=== PATIENT | male | born 1970 | race Caucasian/White ===

== ENCOUNTER 2016-11-19 10:25 | Observation (INO) ==
[2016-11-19] MEDS ORDERED: ZOFRAN IV PRN (11:07)
[2016-11-19] MEDS ORDERED: TYLENOL PO PRN (11:07)
[2016-11-19] MEDS ORDERED: NORCO-7.5 PO PRN (11:13)
[2016-11-19 12:15] LABS: MANUAL DIFF NEEDED? NO
[2016-11-19 12:23] LABS: BASO% 0.6 % (0.0-0.8); EOS# 0.11 X1000 (0.0-0.7); EOS% 1.3 % (0.0-10.0); HEMATOCRIT 53.4 % (42.0-52.0); HEMOGLOBIN 18.1 g/dL (14.0-18.0); IMM GRAN# 0.02 X1000 (0.0-0.04); IMM GRAN% 0.2 % (0.0-0.5); LYMPH# 1.51 X1000 (1.2-3.4); LYMPH% 18.5 % (20.5-51.1); MCH 30.3 PG (27-31); MCHC 33.9 g/dL (33-37); MCV 89.3 FL (81-99); MONO# 0.59 X1000 (0.11-0.59); MONO% 7.2 % (1.7-9.3); MPV 11.3 FL (7.4-10.4); NEUT% 72.2 % (42.2-75.2); PLT 247 X1000 (130-400); RBC 5.98 XMIL (4.7-6.1)
[2016-11-19 12:34] LABS: ALBUMIN 4.9 g/dL (3.5-5.0); CALCIUM 10.3 mg/dL (8.8-10.2); HEMOGLOBIN A1C 7.8 % (4.8-6.0); POTASSIUM 4.4 mmol/L (3.5-5.1); TOTAL BILIRUBIN 0.46 mg/dL (0.20-1.00); TOTAL PROTEIN 7.8 g/dL (6.3-8.3)
[2016-11-19] MEDS: HUMULIN R SUBQ SCH ×3 (12:38→20:33)
[2016-11-19] MEDS ORDERED: VANCOMYCIN IV PER PHARMACY MISC SCH (13:00)
--- NOTE | 2016-11-19 13:39 | HISTORY AND PHYSICAL ---
CHIEF COMPLAINT: Left great toe redness, swelling, pain after truck washer injury. HISTORY OF PRESENT ILLNESS: The patient is a 46-year-old, white male, who suffers from IDDM and fatty liver, who comes in stating he was working on pressure washing an area around his home when he tripped and accidentally left the nozzle on extremely high, and it hit into his left great toe distally skinning the hide off the fdh-ki-etqwui portion of the left great toe area. Skin has been removed by the pressure of the washer. He has had some redness develop and extend back up to the base of the great toe just into the proximal 1st metatarsal area on the left. He had called Dr. Rj Amezcua, a friend and orthopedist, who had placed him on Bactrim DS as of yesterday. He has been fairly active on the toe since then. The injury occurred on 11/14/2016. MEDICATIONS PRIOR TO ADMISSION: 1. Prilosec 40 mg p.o. daily. 2. Victoza 1.8 mg subcutaneous daily. 3. Lantus. He has been able to reduce that from 52 units to 25 units q.a.m. recently with improved diet and with addition of medications. 4. Cozaar 100 mg p.o. daily. 5. Fenofibrate 160 mg p.o. daily. 6. Lipitor 40 mg p.o. at bedtime. 7. Xarelto 20 mg p.o. daily. 8. Glucotrol 10 mg p.o. b.i.d. 9. Synjardy 12.10/1000 p.o. b.i.d. 10. He took [place] x1 or 2 he had at home at 7.5 mg for pain the last couple of days. ALLERGIES: NKDA. PAST MEDICAL HISTORY: 1. Type 2 diabetes mellitus diagnosed in 06/2001. 2. Factor V Leiden deficiency, on chronic anticoagulation. 3. History of kidney stones. 4. Fatty liver. 5. History of obesity, much improved lately with Victoza and Synjardy. PAST SURGICAL HISTORY: 1. Bilateral knee surgery. 2. Left ear surgery due to a cholesteatoma. T-tube there in the past. 3. Vasectomy in 2003. FAMILY HISTORY: Patient is adopted. SOCIAL HISTORY: The patient lives in [place]. He has remarried. He has 2 children. He is a nonsmoker, nondrinker. 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 REVIEW OF SYSTEMS: Notable for weight loss with the new diabetic medications. Down from 182 in 07/2016 to 164. PHYSICAL EXAMINATION: VITAL SIGNS: Blood pressure 122/70, pulse 84, temperature 97.1 degrees. Weight: 164. GENERAL: A well-developed, well-nourished, thin, white male, in no acute distress. SKIN: There is removal of the skin from the xbm-zh-yeelca toe on the left great toe around the nail area. There is redness in the meo-ra-yxqqghho left great toe area extending back into the very distal left first metatarsal area of the foot. No purulence identified. HEENT: PERRL. EOMI. Sclerae anicteric. OP: No redness. Tongue in the midline. NECK: No bruits, TMG, JVD. CARDIOVASCULAR: RRR without murmur. LUNGS: CTA. ABDOMEN: Nontender. No mass or organomegaly. BACK: No CVA tenderness. GENITOURINARY/RECTAL: Deferred. EXTREMITIES: No calf tenderness, cords, or edema. Peripheral pulses 2+ over 4. NEUROLOGIC: CN 2 through 12 intact. NF. ASSESSMENT: 1. washer meat skin decortication, left great toe area, with resulting cellulitis, less likely osteomyelitis. 2. Insulin-requiring diabetes mellitus. 3. Fatty liver. 4. Factor V Leiden deficiency, on chronic Xarelto therapy. 5. History of kidney stones. PLAN: We will admit the patient to the hospital as this is worsening vigorously. We will check blood cultures x2, CBC, CMP, sedimentation rate. Continue his Xarelto and place him on SSI with serial Accu-Cheks. Holding his home diabetic medications. We will gradually resume his home medications. We will start him on IV Zosyn and vancomycin. We will check x-rays left great toe. cc: Fazal Sánchez MD
--- NOTE | 2016-11-19 13:57 | Diag Imaging Result Doc PS360 ---
EXAM: TOE(S)-LEFT HISTORY: cellulitis vs osteomyelitis grat toe TECHNIQUE: Three views COMMENT: There is extensive arterial calcification. There is no evidence of fracture dislocation or erosion or soft tissue calcification. IMPRESSION: No acute bony disease. Electronically signed by Salvatore Saeed 11/19/2016 1:55 PM
[2016-11-19] MEDS: ZOSYN 2.25 GM/NS 2.25 GM/50 ML IVPB IV SCH ×2 (14:50→20:25)
[2016-11-19] MEDS ORDERED: VANCOMYCIN 1.5 GM in NS 250 ML IV ONE (15:00)
[2016-11-19] MEDS ORDERED: BENADRYL IV PRN (17:44)
[2016-11-19] MEDS: POTASSIUM CHLORIDE 10 MEQ in NS 1,000 ML IV SCH (18:58)
[2016-11-20] MEDS: ZOSYN 2.25 GM/NS 2.25 GM/50 ML IVPB IV SCH ×4 (02:26→21:31)
[2016-11-20] MEDS: HUMULIN R SUBQ SCH ×4 (06:09→21:31)
[2016-11-20] MEDS: POTASSIUM CHLORIDE 10 MEQ in NS 1,000 ML IV SCH (06:24)
[2016-11-20 06:29] LABS: MANUAL DIFF NEEDED? NO
[2016-11-20 06:54] LABS: CALCIUM 9.1 mg/dL (8.8-10.2)
[2016-11-20 06:59] LABS: BASO% 0.7 % (0.0-0.8); EOS# 0.19 X1000 (0.0-0.7); EOS% 3.4 % (0.0-10.0); HEMATOCRIT 48.8 % (42.0-52.0); HEMOGLOBIN 16.4 g/dL (14.0-18.0); IMM GRAN# 0.02 X1000 (0.0-0.04); IMM GRAN% 0.4 % (0.0-0.5); LYMPH# 1.21 X1000 (1.2-3.4); LYMPH% 21.3 % (20.5-51.1); MCH 30.5 PG (27-31); MCHC 33.6 g/dL (33-37); MCV 90.7 FL (81-99); MONO# 0.51 X1000 (0.11-0.59); MPV 11.1 FL (7.4-10.4); NEUT% 65.2 % (42.2-75.2); PLT 188 X1000 (130-400); RBC 5.38 XMIL (4.7-6.1)
[2016-11-20 08:07] LABS: SED RATE 0 mm/hr (0-15)
[2016-11-20] MEDS ORDERED: PRILOSEC PO PRN (08:45)
[2016-11-20] MEDS: DIOVAN PO SCH (08:54)
[2016-11-20] MEDS: NS 1,000 ML IV SCH (08:56)
[2016-11-20] MEDS ORDERED: XARELTO PO SCH (09:00)
[2016-11-20] MEDS: LOFIBRA PO SCH (10:18)
--- NOTE | 2016-11-20 12:35 | Diag Imaging Result Doc PS360 ---
EXAM: US RENAL 2 (RETROPER) COMPLETE INDICATION: renal insuff COMPARISON: 09/29/2013 FINDINGS: The kidneys are grossly normal in echotexture with no discrete renal mass or hydronephrosis. The right kidney measures 9.8 cm and left kidney measures 11.5 cm in the greatest longitudinal axes. Right renal cortex measures up to 1.4 cm and the left renal cortex measures up to 1.3 cm in thickness. The prostate is grossly unremarkable. The urinary bladder is unremarkable. The post void residual bladder volume is 3 mL. IMPRESSION: Unremarkable renal ultrasound. Electronically signed by Collin Su 11/20/2016 12:33 PM
--- NOTE | 2016-11-20 13:36 | PROGRESS NOTE ---
DATE: 11/20/2016 SUBJECTIVE: Patient overall doing better. He has seen little less redness and pain in the left great toe. OBJECTIVE: Afebrile, pulse 63, respirations 20, blood pressure 110/67.CV: RRR without murmur. Lungs: CTA. Extremities: No calf tenderness cords or edema. Peripheral pulses 2+. Redness right 1st metatarsal area has improved. There is still redness prominently around the base of the toenail and the denuded skin mid to distal aspect of the great toe on the left. Pronounced redness there. No discharge, no foul smell. X-rays left toe negative for osteomyelitis on x-ray. White blood cell count 5.6, hemoglobin 16.4, platelets 188,000. Sedimentation rate 0, sodium 141, potassium 5.0, chloride 106, CO2 22, BUN 26, creatinine 1.8, glucose 110. A1c done yesterday 7.8, LFTs normal. ASSESSMENT: 1. Cellulitis left great toe with decortication of the skin from a pan washer hand. 2. Insulin-requiring diabetes mellitus. 3. Fatty liver. 4. Factor V Leiden deficiency on chronic Xarelto. 5. History of kidney stones. 6. Renal insufficiency. New onset. PLAN: Continue renal dose Zosyn and vancomycin. He has seen clinical improvement thus far. We will continue to monitor his renal function. We will give him some low IV hydration. Will check renal ultrasound. Hold his home diabetic medicines while giving him serial Accu-Cheks and SSI currently. Will resume his anti hypertensives and cholesterol medications and we will continue Xarelto, of course. cc: Fazal Sánchez MD
[2016-11-20] MEDS ORDERED: VANCOMYCIN 1.25 GM in NS 250 ML IV SCH (15:00)
[2016-11-20] MEDS ORDERED: LIPITOR PO SCH (21:00)
[2016-11-21] MEDS: ZOSYN 2.25 GM/NS 2.25 GM/50 ML IVPB IV SCH ×2 (03:03→09:50)
[2016-11-21] MEDS: NS 1,000 ML IV SCH (03:03)
[2016-11-21] MEDS: HUMULIN R SUBQ SCH ×2 (06:06→11:23)
[2016-11-21 07:02] LABS: MANUAL DIFF NEEDED? NO
[2016-11-21 07:12] LABS: BASO% 1.1 % (0.0-0.8); EOS# 0.19 X1000 (0.0-0.7); EOS% 4.1 % (0.0-10.0); HEMATOCRIT 47.8 % (42.0-52.0); LYMPH% 30.1 % (20.5-51.1); MCH 30.4 PG (27-31); MCHC 33.5 g/dL (33-37); MCV 90.9 FL (81-99); MONO# 0.53 X1000 (0.11-0.59); MONO% 11.4 % (1.7-9.3); NEUT% 53.3 % (42.2-75.2); PLT 189 X1000 (130-400); RBC 5.26 XMIL (4.7-6.1)
[2016-11-21 07:19] LABS: CALCIUM 9.2 mg/dL (8.8-10.2)
[2016-11-21 07:57] VITALS: BP 100/72
[2016-11-21] MEDS ORDERED: XARELTO PO SCH (09:49)
[2016-11-21] MEDS: LOFIBRA PO SCH (09:51)
[2016-11-21] MEDS: DIOVAN PO SCH (09:51)
[2016-11-21] MEDS ORDERED: KEFLEX PO SCH (11:00)
[2016-11-21] MEDS ORDERED: SEPTRA DS PO SCH (11:00)
--- NOTE | 2016-11-21 16:06 | DISCHARGE SUMMARY ---
ADMISSION DATE: 11/19/2016 DISCHARGE DATE: 11/21/2016 DIAGNOSES: 1. Cellulitis of the left great toe. 2. Skin decortication of distal and mid left great toe with a parts washer. 3. Insulin-requiring diabetes mellitus. 4. New onset renal insufficiency, improving slightly. 5. Fatty liver. 6. Factor V Leiden deficiency on chronic Xarelto therapy. 7. History of kidney stones. PROCEDURES: 1. Left toe x-rays: Negative for osteomyelitis or other abnormality. 2. Bilateral renal ultrasound: Negative for abnormality. REASON FOR ADMISSION AND HOSPITAL COURSE: The patient is a 46-year-old white male followed by my medical practice. He is an insulin-requiring diabetic who had been doing well and was admitted with cellulitis of the left great toe after he accidentally tripped and removed the skin from the mid and distal aspect of the left great toe with a parts washer. That injury had occurred about a week prior to his arrival in the office. The patient then called his friend, Dr. Bernal, and he had placed him on Bactrim DS b.i.d. the day prior to admission. The patient came in and he had prominent redness extending back into the distal first metatarsal area and especially over the nas-bd-fotkig toe and the skin had been removed with a parts washer. The patient was admitted. A1c was 7.8. Other labs were normal except for a BUN and creatinine which were elevated at around 28 and 1.8. With mild hydration creatinine reduced to 1.6 by discharge. We left him off his diabetic medications leaving him on SSI during the hospitalization with serial Accu-Cheks and blood sugars were good. He was maintained on his home Xarelto of 20 mg daily but we will reduce that to 15 mg daily at discharge. He was placed on IV antibiotics in the form of vancomycin and Zosyn. Renal ultrasound was done due to the renal insufficiency and was negative. The redness improved markedly over the great toe and resolved completely over the distal first metatarsal area on the left and it was felt that he had improved to the point that he could be discharged home on 11/21/2016. He will follow up in my office in 1 week and at that time we will repeat a BMP in the office. The adjustments that we will make on his medications will be: We will stop the Synjardy and place him on metformin ER at 1,000 mg b.i.d. with breakfast and supper. We will start him on Keflex and we will place him on renal dose Bactrim DS at one p.o. daily instead of b.i.d.. Also, we will reduce his Xarelto from 20 mg daily to 15 mg daily. cc: Fazal Sánchez MD
[2016-11-21] MEDS ORDERED: GLUCOPHAGE XR PO SCH (17:00)
== END 2016-11-21 12:00 | disposition home or self-care (01) ==
LOC: INTOOBSV 10:25 → DIRADM 10:25 → 3N 11:13
PROVIDERS: ADMIT Family Medicine; ATTEND Family Medicine

== ENCOUNTER 2018-09-28 18:39 | Inpatient (IN) ==
[2018-09-28] MEDS ORDERED: LOVENOX 1 MG/KG SUBQ ONE (20:26)
--- NOTE | 2018-09-28 20:40 | PROVIDER DOCUMENTATION ---
This chart was entered by Geoffrey Thrasher Scribe, acting as scribe for Malinda Wren CRNP. HPI-General Adult - General Chief Complaint: Bleeding Disorder Stated Complaint: POSS BLOOD CLOT PER DR SÁNCHEZ Time Seen by Provider: 09/28/18 19:09 Source: patient Allergies/Adverse Reactions: Patient Allergies Allergy/AdvReac Type Severity Reaction Status Date / Time No Known Allergies Allergy Verified 11/19/16 12:00 Home Medications: Home Medication List Medication Instructions Recorded Confirmed Last Taken Type ATORVAstatin [Lipitor] 40 mg PO QHS 11/20/16 11/20/16 Unknown History Fenofibrate 160 mg PO DAILY 11/20/16 11/20/16 Unknown History Glipizide [Glipizide ER] 10 mg PO BID 11/20/16 11/20/16 Unknown History Insulin Glargine [Lantus] 25 unit SUBQ QAM 11/20/16 11/20/16 Unknown History Liraglutide [Victoza] 1.8 mg SUBQ DAILY 11/20/16 11/20/16 Unknown History Omeprazole [Prilosec] 20 mg PO DAILY PRN 11/20/16 11/20/16 Unknown History Valsartan 320 mg PO DAILY 11/20/16 11/20/16 Unknown History Acetaminophen [Tylenol] 650 mg PO Q6H PRN PRN #0 tablet 11/21/16 Unknown Rx CephALEXIN [Keflex] 500 mg PO Q6HR #56 capsule 11/21/16 Unknown Rx Metformin E.r. [Glucophage Xr] 1,000 mg PO BID CC #60 tablet 11/21/16 Unknown Rx Rivaroxaban [Xarelto] 15 mg PO DAILY #30 tablet 11/21/16 Unknown Rx Sulfamethoxazole/Tmp D.s. [Septra 1 each PO DAILY tablet 11/21/16 Unknown Rx Ds] - History of Present Illness -Gen Adult Nature of Presenting Problems: Pt is a 48 y/o M presents to the ED 2 weeks post op neck surgery with right arm pain from the shoulder to the Elbow. Pt reports taking a low dose lovenox since surgery. Pt reports pt was sent to the ED for a possible DVT. Location of Pain/Injury: reports: upper extremity (right arm) Pain Radiation: reports: no radiation Quality of Pain: reports: aching Severity: reports: severe Onset/Duration: reports: gradual Timing: reports: getting worse Context/Activities at Onset: reports: other (2 weeks post op) Associated Symptoms: reports: arm pain. denies: back/neck pain, cough, dizziness, shortness of breath Similar Symptoms Previously?: No Recently seen or treated by another doctor?: No Review of Systems - Adult - REVIEW OF SYSTEMS - ADULT Constitutional: denies: chills, fever Eyes: reports: no symptoms reported Ears, Nose, Mouth & Throat: denies: sinus problem, throat pain Cardiovascular: denies: chest pain, edema, palpitations Respiratory: denies: cough, shortness of breath Gastrointestinal: denies: abdominal pain, nausea, vomiting Genitourinary: denies: dysuria, discharge Musculoskeletal: reports: other (right arm pain). denies: bone pain, back pain Integumentary: reports: no symptoms reported Neurological: denies: dizziness/vertigo, headache/migraines Psychiatric: reports: no symptoms reported Endocrine: reports: no symptoms reported Hematologic/Lymphatic: reports: no symptoms reported Allergic/Immunologic: reports: no symptoms reported All Other Systems: Reviewed and Negative Past History - Adult - PAST MEDICAL HISTORY-ADULT Review of Records: reports: Old Records Reviewed, Nursing Assessment Review, Medications Reviewed, Social history reviewed & non-contributory. - IMMUNIZATION STATUS Childhood Immunizations: See Nurse Assessment Flu Vaccine: See Nurse Assessment - FAMILY HISTORY Family History: reviewed, not pertinent - SOCIAL HISTORY Smoking: non-smoker Living Situation: family Physical Exam-General - PHYSICAL EXAM-ADULT Initial Vital Signs Reviewed: Yes - CONSTITUTIONAL General Appearance: alert, no apparent distress - EYES Eyes: PERRL/EOMI, pink conjunctivae - HEAD, EARS, NOSE, MOUTH & THROAT HENMT: moist mucous membranes, normal ENT inspection, pharynx normal - NECK Neck: non-tender, full range of motion, supple - RESPIRATORY Respiratory: lungs clear, normal breath sounds, no pleuratic chest pain, no respiratory distress, no accessory muscle use - GASTROINTESTINAL (ABDOMEN) Abdominal Exam: non tender, soft - MUSCULOSKELETAL Back Exam: normal inspection, no CVA tenderness, no vertebral tenderness Extremity: normal range of motion, tenderness. negative: normal inspection (right arm view very visible and firm) - SKIN Integumentary: normal color, normal turgor, warm/dry - NEUROLOGIC Neurologic: grossly normal, no motor/sensory deficits - PSYCHIATRIC Psych/Mental Status: normal mood/affect, normal thought content, normal thought process, oriented x 3 Progress - PLAN OF CARE/RESULTS Progress/Plan/Lab Results: Vital Signs - 8 hr 09/28/18 18:47 Temperature 97.6 F Pulse Rate 94 H Respiratory Rate 18 Blood Pressure 138/87 O2 Sat by Pulse Oximetry 99 Orders Category Date Time Status Venous U/S Right Arm Stat Ther 09/28/18 18:52 Completed Discussed results and plan of care with patient. Patient agrees with plan and verbalizes understanding. - ULTRASOUND (By Radiology) 1 US Study: Upper Ext (All superficial veins are clotted, Proximal brachial DVT and Proximal radial DVT per tech) - CONSULTS/PCP/HOSPITALIST Notification #1 *Consult/PCP/Hospitalist*: Dr. Sánchez Time Discussed: 20:07 Reason/Comments: Admission Consult Disposition: Admit (Dr. Sánchez wants the patient admitted and put on Lovenox q12h, no further tests needed.) Departure - Departure Date of Disposition Decision: 09/28/18 Time of Disposition Decision: 20:36 DIAGNOSIS: DVT (deep venous thrombosis) Qualifiers: DVT location: upper extremity Affected thrombotic vein of extremity: brachial Chronicity: acute Laterality: right Qualified Code(s): I82.621 - Acute embolism and thrombosis of deep veins of right upper extremity Disposition: HOME 01 Certified Medical Emergency: Emergent Condition: Stable Referrals and Follow-Ups: Fazal Sánchez MD [Primary Care Provider] - - Critical Care Note This patient required my direct & personal management of CC.: No Attestation - Physician/ CAREN Attestation Patient care was provided by Advanced Practice Provider:: Yes Advanced Practice Provider:: Malinda Wren Advanced Practice Provider documentation review:: The Mid-level provider documentation, treatment plan and medical decision making was reviewed by the physician who agrees with all treatment and medical decision making by the MLP. The physician spent face to face time with patient:: No Advanced Practice Provider documentation review:: Supervising physician onsite and consulted in the evaluation and care of this patient. The physician did not have a face to face encounter with the patient. This chart was documented by the indicated scribe, (Geoffrey Thrasher Scribe) and accurately reflects the services I performed and decisions made by me, Malinda Wren CRNP, as attested by the provider's signature.
[2018-09-28] MEDS ORDERED: LOVENOX SUBQ ONE (20:45)
[2018-09-29] MEDS ORDERED: D50W SYRINGE IV ONE (01:46)
[2018-09-29] MEDS: HUMULIN R SUBQ SCH ×3 (06:24→17:03)
[2018-09-29] MEDS: LOVENOX SUBQ SCH ×2 (08:25→21:01)
[2018-09-29] MEDS ORDERED: ROBAXIN PO PRN (08:54)
[2018-09-29] MEDS ORDERED: NORCO-7.5 PO PRN (08:54)
[2018-09-29 09:39] LABS: BASO# 0.05 X1000 (0.0-0.2); BASO% 0.7 % (0.0-0.8); EOS# 0.11 X1000 (0.0-0.7); EOS% 1.6 % (0.0-10.0); HEMATOCRIT 50.3 % (42.0-52.0); HEMOGLOBIN 17.2 g/dL (14.0-18.0); IMM GRAN# 0.02 X1000 (0.0-0.04); IMM GRAN% 0.3 % (0.0-0.5); LYMPH# 1.86 X1000 (1.2-3.4); LYMPH% 27.4 % (20.5-51.1); MCHC 34.2 g/dL (33-37); MCV 87.8 FL (81-99); MONO# 0.51 X1000 (0.11-0.59); MONO% 7.5 % (1.7-9.3); MPV 10.1 FL (7.4-10.4); NEUT# 4.23 X1000 (1.4-6.5); NEUT% 62.5 % (42.2-75.2); PLT 284 X1000 (130-400); RBC 5.73 XMIL (4.7-6.1); RDW 12.9 % (11.5-14.5); WBC 6.78 X1000 (4.8-10.8)
[2018-09-29 10:14] LABS: AGAP 12; ALB/GLOB RATIO 1.3; ALBUMIN 4.1 g/dL (3.5-5.0); ALKALINE PHOSPHATASE 60 U/L (32-122); BUN 16 mg/dL (8-22); CALCIUM 9.5 mg/dL (8.8-10.2); CHLORIDE 105 mmol/L (98-107); COSMO 280; CREATININE 1.1 mg/dL (0.7-1.2); ESTIMATED GFR > 60; GLUCOSE 118 mg/dL (70-104); GOT 23 U/L (10-34); GPT 22 U/L (10-44); SODIUM 139 mmol/L (136-145); TCO2 22 mmol/L (25-35); TOTAL BILIRUBIN 0.34 mg/dL (0.20-1.00); TOTAL PROTEIN 7.2 g/dL (6.3-8.3)
[2018-09-29] MEDS: AVAPRO PO SCH (10:51)
[2018-09-29] MEDS: GLUCOPHAGE PO SCH ×2 (10:52→17:31)
[2018-09-29] MEDS: NON-FORMULARY MED PO SCH ×2 (10:52→17:31)
[2018-09-29] MEDS: LOFIBRA PO SCH (10:53)
[2018-09-29] MEDS: LANTUS INSULIN SUBQ SCH (10:53)
[2018-09-29 11:02] LABS: HEMOGLOBIN A1C 7.4 % (4.8-6.0)
[2018-09-29] MEDS ORDERED: GLUCOPHAGE PO SCH (18:38)
--- NOTE | 2018-09-29 19:25 | HISTORY AND PHYSICAL ---
CHIEF COMPLAINT: Right arm swelling and pain. HISTORY OF PRESENT ILLNESS: The patient is a 48-year-old white male, followed in my medical practice, who has undergone right neck surgery per Dr. Casey, neurosurgeon, on 09/20/2018. He has a history of Factor 5 Leiden deficiency, and has been on Coumadin chronically, and then now is on Xarelto, longstanding. He was placed on Lovenox prophylactically and bridged over with low-dose Lovenox perioperatively, but after the surgery he began having some pain and swelling in his right forearm and to the right antecubital and distal biceps area. The patient did not seek medical attention, but called late on the evening of 09/28/2018 with some symptoms, and he was advised to seek attention in the ER and was found to have a DVT in the right arm. He has noted some coolness to the right arm as well in addition to the swelling and pain. He has had no prior history of DVTs. MEDICATIONS PRIOR TO ADMISSION: 1. Lipitor 40 mg p.o. at bedtime. 2. Fenofibrate 160 mg p.o. daily. 3. Glipizide ER 10 mg p.o. b.i.d. 4. Lantus 42 units subcutaneous q.a.m. 5. ER has said that he is on Victoza, but I thought he was off of this, at 1.8 mg subcutaneously daily, but I believe he is off of this due to some nausea. 6. Prilosec 20 mg p.o. daily p.r.n. 7. Valsartan 320 mg p.o. daily. 8. Tylenol p.r.n. 9. Again, he has been off his 20 mg daily Xarelto, and on the Lovenox 40 mg subcutaneously daily, but was scheduled to switch back to the Xarelto on the morning of 09/29/2018. 10. Synjardy-XR 12.10/999 two p.o. q.a.m. ALLERGIES: NKDA. PAST MEDICAL HISTORY: 1. Factor V Leiden deficiency. 2. Type 2 DM, diagnosed June 2001, now requiring insulin. 3. Kidney stones. 4. Fatty liver. 5. Chronic renal insufficiency. 6. Hyperlipidemia. PAST SURGICAL HISTORY: 1. Bilateral knee surgery/arthroscopies. 2. Left ear surgery for cholesteatoma. 3. Vasectomy, 2003. FAMILY HISTORY: Unobtainable, as patient is adopted. SOCIAL HISTORY: Patient lives in [place]. He is . He has 2 children. He is a nonsmoker lifelong and nondrinker. 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 REVIEW OF SYSTEMS: Negative except as above. Notably, no history of chest pains or shortness of breath. PHYSICAL EXAMINATION: VITAL SIGNS: Afebrile, pulse 78, respirations 18, blood pressure 119/77, O2 saturation 98% on room air. GENERAL: Well developed, well nourished, white male in no acute distress. HEENT: Scar healing well, right lower neck line horizontally. PERRL. EOMI. Sclerae anicteric. OP no redness. Tongue midline. NECK: No LA, TMG, JVD, bruits. CV: RRR without murmur. LUNGS: CTA. BACK: Nontender. ABDOMEN: Soft, NT, ND. No mass. No HSM. GENITOURINARY/RECTAL: Deferred. EXTREMITIES: No calf tenderness, cords or edema. Peripheral pulses 2+. Right arm has some distention and swelling at the right distal biceps, antecubital area, and right forearm, with no discoloration. Peripheral pulses 2+ over 4 in right radial and palpable ulnar pulse as well. NEUROLOGIC: Cranial nerves 2 through 12 are intact. Moves all extremities well. IMAGING: Venous ultrasound, right arm, reveals right arm DVT and superficial phlebitis. ASSESSMENT: 1. Right arm deep venous thrombosis with superficial thrombophlebitis. 2. Factor V Leiden deficiency. 3. Recent right neck surgery, per Dr. Casey. 4. Insulin-requiring diabetes mellitus. 5. History of kidney stones. 6. Fatty liver. 7. Chronic renal insufficiency. 8. Hyperlipidemia PLAN: 1. We will admit the patient. 2. Apply warm compresses to his arm 3 times a day. 3. Avoid strenuous activity with his right arm. 4. Will give him full strength Lovenox at 1 mg/kg subcutaneously every 12 hours. 5. Continue his home medications, with SSI as required with serial Accu-Cheks. cc: Fazal Sánchez MD
[2018-09-29] MEDS: PEPCID PO SCH (21:00)
[2018-09-29] MEDS: LIPITOR PO SCH (21:00)
[2018-09-30] MEDS ORDERED: NON-FORMULARY MED PO SCH (08:00)
[2018-09-30] MEDS: NON-FORMULARY MED PO SCH ×2 (08:07→17:51)
[2018-09-30] MEDS: LOVENOX SUBQ SCH ×2 (08:08→20:14)
[2018-09-30] MEDS: LIPITOR PO SCH ×2 (08:09→09:42)
[2018-09-30] MEDS: GLUCOPHAGE PO SCH ×2 (08:09→17:05)
[2018-09-30] MEDS: LOFIBRA PO SCH (08:10)
[2018-09-30] MEDS: PEPCID PO SCH (08:10)
[2018-09-30] MEDS: AVAPRO PO SCH ×2 (08:10→08:33)
[2018-09-30] MEDS: LANTUS INSULIN SUBQ SCH ×2 (08:27→08:32)
[2018-09-30 15:24] VITALS: BP 112/71
[2018-09-30] MEDS ORDERED: GLUCOTROL XL PO SCH (17:00)
--- NOTE | 2018-09-30 18:21 | PROGRESS NOTE ---
DATE: 09/30/2018 SUBJECTIVE: Still having some pain right forearm over the nodular veins in the area, but overall now shortness of breath. He had an episode of high of diaphoresis from his waist down and cold extremities in his legs yesterday, but that resolved without any treatment and is doing better now. OBJECTIVE: Vital Signs: Afebrile. Vital signs stable. CV: Regular rate and rhythm without murmur. Lungs: Clear to auscultation. Extremities: Nodularity and along the veins and some swelling and redness at the right forearm, right distal biceps area. No calf tenderness or cords in his legs. Neurologic: Cranial nerves are intact. LAB DATA: Reviewed from admission. ASSESSMENT: 1. Right arm deep vein thrombosis with superficial thrombophlebitis. 2. Recent right neck surgery per Dr. Casey, neurosurgeon. 3. Factor V Leiden deficiency on chronic anticoagulation. 4. Insulin-requiring diabetes mellitus. 5. History of kidney stones. 6. Fatty liver. 7. Chronic renal insufficiency, mild. 8. Hyperlipidemia. PLAN: We will discharge the patient after he receives his 8 p.m. full dose Lovenox injection this evening. He will apply warm compresses outpatient to his arm 3 times a day. Avoid strenuous activity with his right arm for 2 to 3 weeks and he will follow up with me in 2 weeks. We will discharge him on Xarelto 15 mg p.o. b.i.d. for 3 weeks, then switching over back to his home dose of 20 mg daily. If he has any difficulties, he knows to follow up with me sooner or come to the ER. Otherwise, he will resume his home medications to include his Lantus insulin. cc: Fazal Sánchez MD
[2018-09-30] MEDS ORDERED: PEPCID PO SCH (21:00)
[2018-09-30] MEDS ORDERED: LIPITOR PO SCH (21:00)
--- NOTE | 2018-10-02 16:10 | Extremity Venous Study ---
PROCEDURE NAME: Venous U/S Right Arm - 09/28/2018 RIGHT UPPER EXTREMITY VENOUS ULTRASOUND: LINE MECHANIC: Chevy. REQUESTING PHYSICIAN: INDICATION: Pain, status post surgery. FINDINGS: In the right upper extremity, there is lack of compressibility, but maintained flow noted at the right brachial and radial veins consistent with deep venous thrombosis at this location. There is also superficial thrombus noted throughout the basilic and cephalic veins. SUMMARY: Extensive DVT and superficial venous thrombus seen in the right upper extremity. cc: MD Fazal Yip MD [facility]
== END 2018-09-30 20:36 | disposition home or self-care (01) | DRG 300 ==
LOC: ED 18:39 → 3N 21:45
PROVIDERS: ADMIT Family Medicine; ATTEND Family Medicine
CPT/HCPCS: 80053; 82948; 83036; 85025; 93971; 96372; 99284; A9270; J1650; J1815; XXXXX